=== PATIENT | male | born 1960 | race Hispanic/Latino ===

== ENCOUNTER 2024-07-21 08:43 | Emergency (ER) | payer OTHER ==
[2024-07-21] MEDS ORDERED: Lidocaine 1% w/Epinephrine 1:100K 20 ML VIAL ONE (10:02)
[2024-07-21] MEDS ORDERED: Bacitracin 1 PK ONE (11:57)
== END 2024-07-21 12:20 | disposition home or self-care (01) ==
LOC: ERS 08:43
DX: S01.81XA Laceration without foreign body of other part of head, initial encounter (principal); E11.9 Type 2 diabetes mellitus without complications; I10 Essential (primary) hypertension; W25.XXXA Contact with sharp glass, initial encounter
CPT/HCPCS: 96372; 99283